=== PATIENT | male | born 1990 | race Caucasian/White ===

== ENCOUNTER 2024-12-07 00:23 | Emergency (ER) | payer OTHER ==
[~2024-12-07] VITALS: Ht 175.3 cm; Wt 73.0 kg
[2024-12-07 00:35] VITALS: BP 141/78; PULSE 85; RESP 18; TEMP 36.4; O2SAT 96
[2024-12-07] MEDS ORDERED: ALBU18HF2 IH (01:41)
[2024-12-07] MEDS ORDERED: PRED5TAB48 MT (01:41)
[2024-12-07] MEDS ORDERED: LIDOCAINE HCL 1% 20ML VIAL INFIL ONE (01:45)
== END 2024-12-07 03:49 | disposition home or self-care (01) ==
LOC: ER 00:23
DX: J45.901 Unspecified asthma with (acute) exacerbation (principal); Z76.0 Encounter for issue of repeat prescription
CPT/HCPCS: 99283

== ENCOUNTER 2025-08-11 11:53 | Emergency (ER) | payer MEDICAID ==
[~2025-08-11] VITALS: Ht 188 cm; Wt 80.0 kg
[~2025-08-11 11:53] MED LIST: ALBU18HF2 IH; PRED5TAB48 MT
[2025-08-11] MEDS: PREDNISONE 20MG TABLET PO ONE (12:59)
[2025-08-11 13:08] VITALS: PULSE 74; RESP 20; O2SAT 95
[2025-08-11] MEDS: IPRATROPIUM/ALBUTEROL 0.5-3(2.5)MG/3ML NEB HHN ONE (13:08)
[2025-08-11] MEDS ORDERED: P50 MT (13:42)
[2025-08-11] MEDS ORDERED: ALBU18HF2 IH (13:42)
[2025-08-11 13:51] VITALS: BP 120/72; PULSE 71; RESP 15; TEMP 36.7; O2SAT 98
== END 2025-08-11 13:52 | disposition home or self-care (01) ==
LOC: ER 12:43
DX: J45.901 Unspecified asthma with (acute) exacerbation (principal); Z79.899 Other long term (current) drug therapy
CPT/HCPCS: 94640; 99283; J7512; Z7610 ×3; 94070; 94664

== ENCOUNTER 2025-08-18 00:27 | Emergency (ER) | payer MEDICAID ==
[~2025-08-18] VITALS: Ht 188 cm; Wt 79.0 kg
[~2025-08-18 00:27] MED LIST changes: +P50 MT
[2025-08-18 01:38] VITALS: PULSE 94; RESP 24; O2SAT 97
[2025-08-18] MEDS: ALBUTEROL (0.083%) 2.5MG/3ML NEB HHN ONE (01:38)
[2025-08-18] MEDS ORDERED: ALBU18HF2 IH (01:55)
[2025-08-18] MEDS ORDERED: P50 MT (01:55)
[2025-08-18] MEDS: METHYLPREDNISOLONE SOD SUCC 125MG/2ML (ACT-O-VIAL) IM ONE (02:03)
[2025-08-18 03:35] VITALS: BP 121/62; PULSE 78; RESP 17; TEMP 36.8; O2SAT 96
== END 2025-08-18 03:40 | disposition home or self-care (01) ==
LOC: ER 00:27
DX: J45.901 Unspecified asthma with (acute) exacerbation (principal); Z79.899 Other long term (current) drug therapy
CPT/HCPCS: 94640; 96372; 99283; J2919; Z7610 ×2; 94760